=== PATIENT | female | born 1990 | race Asian ===

== ENCOUNTER 2016-10-29 08:02 | Outpatient (CLI) | payer OTHER | END 2016-10-29 09:05 | disposition home or self-care (01) | LOC: LABW 08:02 | DX: N93.8 Other specified abnormal uterine and vaginal bleeding (principal) | CPT/HCPCS: 36415; 84144 ==

== ENCOUNTER 2017-04-09 20:42 | Emergency (ER) | payer OTHER ==
[~2017-04-09] VITALS: Ht 160 cm; Wt 67.1 kg
[2017-04-09 21:44] LABS: PLATELET COUNT 255 K/uL (152-353)
[2017-04-09 22:25] VITALS: BP 122/79; TEMP 98.7
== END 2017-04-09 22:26 | disposition home or self-care (01) ==
LOC: ED 20:42
PROVIDERS: Specialist
DX: R42 Dizziness and giddiness (principal)
CPT/HCPCS: 36415; 81000; 85027; 99283